=== PATIENT | female | born 1965 | race Caucasian/White ===

== ENCOUNTER 2021-01-08 22:21 | Emergency (ER) | payer MEDICAID, SELFPAY ==
--- NOTE | ~2021-01-08 | XR_ITS ---
EXAMINATION: XR CHEST CLINICAL INFORMATION: Cough. Shortness of breath. COMPARISON: None TECHNIQUE: Frontal view of the chest was obtained. FINDINGS: The lungs are well expanded. There is no focal consolidation, edema, or effusion. No pneumothorax. The cardiomediastinal silhouette is within normal limits. No acute osseous abnormality. XR/XR chest 1V IMPRESSION: Clear lungs.
--- NOTE | ~2021-01-08 | CT_ITS ---
EXAMINATION: CT HEAD WITHOUT CONTRAST CLINICAL INFORMATION: Headache. Vision changes. COMPARISON: None. TECHNIQUE: Contiguous axial imaging was performed from the skull base to vertex without intravenous contrast. This CT examination was performed using dose optimization techniques as appropriate, variously including the following: * Automated exposure control * Adjustment of mA and/or kV according to patient size (this includes techniques or standardized protocols for targeted exams where dose is matched to indication/reason for exam; i.e. extremities or head) Use of iterative reconstruction technique DLP: 602 mGy-cm. FINDINGS: There is no evidence of acute intracranial hemorrhage or territorial infarction. No abnormal mass effect or midline shift is seen. Escalante to white matter differentiation is well preserved. No extra-axial fluid collections are identified. No hydrocephalus. No significant volume loss. There is no abnormal attenuation within the brain parenchyma. The osseous structures and soft tissues are normal. Partial opacification of the mastoid air cells bilaterally. Mild mucoperiosteal thickening of the right maxillary sinus and right ethmoid air cells. CT/CT head/brain wo con IMPRESSION: No acute intracranial pathology.
[2021-01-08 22:27] VITALS: BP 200/91; PULSE 74; RESP 18; TEMP 36.9; O2SAT 100; BMI 39.0
[2021-01-09 00:30] VITALS: BP 143/70; PULSE 67; TEMP 37.2; O2SAT 95
--- NOTE | 2021-01-09 01:30 | ED_ITS ---
HPI - General Adult General Chief complaint: General Medical <DELGADO Clarke - Last Filed: 01/09/21 02:35> Stated complaint: ear infection? <DELGADO Clarke - Last Filed: 01/09/21 02:35> Time Seen by Provider: 01/09/21 00:27 <DELGADO Clarke - Last Filed: 01/09/21 02:35> Source: patient <DELGADO Clarke Last Filed: 01/09/21 02:35> Mode of arrival: ambulatory <DELGADO Clarke Last Filed: 01/09/21 02:35> Limitations: other (poor historian, changing story) <DELGADO Clarke Last Filed: 01/09/21 02:35> History of Present Illness HPI narrative: 55-year-old female past medical history significant for hypertension prese nts to the emergency department with multiple complaints including headache, dizziness, chest pain, shortness of breath, right arm numbness, productive cough X1 week progressively worsening. Patient states what prompted her to come in today is that she took her blood pressure, she noted is very high, so she took her friend's blood pressure medication, she states 1 did not work, so she decided to take a 2nd dose. She is unsure of which she took, and she is not sure about the dose. She states that she has been having a headache that is been progressively worsening. She also reports dizziness, and falling over to the side with ambulation. She reports shortness of breath and a cough product neal of white sputum. Patient states she had an upper respiratory infection about a week ago. Patient is a current daily smoker and smokes about 1-2 packs per day. <DELGADO Clarke Last Filed: 01/09/21 02:35> Onset (ago): week(s) (1) <DELGADO Clarke Last Filed: 01/09/21 02:35> Severity: severe <DELGADO Clarke Last Filed: 01/09/21 02:35> Pain Consistency: constant <DELGADO Clarke Last Filed: 01/09/21 02:35> Relieving factors: none <DELGADO Clarke - Last Filed: 01/09/21 02:35> Exacerbating factors: none <DELGADO Clarke - Last Filed: 01/09/21 02:35> Treatments prior to arrival: other (two pills for BP unsure of name or dose. ) <DELGADO Clarke - Last Filed: 01/09/21 02:35> Related Data Allergies/adverse reactions: Allergies Allergy/AdvReac Type Severity Reaction Status Date / Time Unable to Assess Allergy Unverified 01/09/21 01:31 <DELGADO Clarke - Last Filed: 01/09/21 02:35> Review of Systems Review of Systems: Constitutional : No Weight loss, No Fever, No Chills, No Fatigue, No Malaise ENT/Mouth : No sore throat, No Rhinorrhea Eyes: No Eye Pain, No Swelling, No Redness Cardiovascular : + Chest Pain, + SOB, No Dyspnea on Exertion, No Orthopnea, No Edema, No Palpitations Respiratory : + Cough, + Sputum, No Wheezing Gastrointestinal : No Nausea, No Vomiting, No Diarrhea, No Constipation, No abdominal Pain, No Hematochezia, No Melena Genitourinary : No Dysuria, No Urinary Frequency, No Hematuria, Musculoskeletal : No joint pain, No Myalgias, No Joint Swelling Skin : No Skin Lesions, No rash Neuro : No Weakness, No Numbness, No Dizziness, + Headache All other systems reviewed and are negative <DELGADO Clarke Last Filed: 01/09/21 02:35> [facility] Past Medical History Attestation statement: The following information was validated with the patient. <DELGADO Clarke - Last Filed: 01/09/21 02:35> Source: old records reviewed and nursing notes reviewed <DELGADO Clarke - Last Filed: 01/09/21 02:35> Social History Social History: Social History Advance Directives: No Advance Directives Information Provided: Yes <DELGADO Clarke Last Filed: 01/09/21 02:35> Physical Exam Vital Signs: Vital Signs: Last Vital Signs Temp 98.8 F 01/09/21 02:33 Pulse 61 11/11/21 03:53 Resp 16 01/09/21 03:53 BP 142/78 H 01/09/21 03:53 Pulse Ox 100 01/09/21 03:53 Body Mass Index 39.0 <DELGADO Clarke - Last Filed: 01/09/21 02:35> Vital Signs: Last Vital Signs Temp 98.8 F 01/09/21 02:33 Pulse 61 01/09/21 03:53 Resp 16 01/09/21 03:53 BP 142/78 H 01/09/21 03:53 Pulse Ox 100 01/09/21 03:53 Body Mass Index 39.0 <Kim Salinas MD - Last Filed: 01/09/21 04:10> Appearance: Alert.? Oriented X3.? No acute distress.? Eyes: Pupils equal, round and reactive to light.?EOMI ENT: Pharynx normal.? Neck: Normal inspection.? Neck supple.? CVS: Normal heart rate and rhythm.? Pulses normal.? Respiratory: No respiratory distress.? + bilateral crackles noted Abdomen: Soft and nontender.? Skin: Skin warm and dry.? Normal skin color.? Normal skin turgor.? Extremities: No lower extremity edema.? No calf ttp Neuro: Oriented X 3.? No motor deficit.? No sensory deficit. 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 Negative Burdinski <DELGADO Clarke - Last Filed: 01/09/21 02:35> Course Reevaluation(s) Reevaluation #1: Report will be given to Dr. Nelson. Labs are pending, CT, chest x-ray pending. Patient disposition based off of laboratory studies, and patient's symptoms. <DELGADO Clarke - Last Filed: 01/09/21 02:35> Time: 02:34 <DELGADO Clarke - Last Filed: 01/09/21 02:35> Reevaluation #2: I re-evaluated the patient at bedside and she denies any dizziness/headache/shortness of breath/chest pain/palpitations currently and st ates that she is feeling much better and will be speaking with her primary care provider in the morning regarding her blood pressure control medication. On review of all investigations there are no acute findings and she is otherwise discharged home in stable condition. <Kim Salinas MD - Last Filed: 01/09/21 04:10> Time: 04:07 <Kim Salinas MD - Last Filed: 01/09/21 04:10> Medical Decision Making MDM Narrative Medical decision making narrative: 0131 55-year-old female past medical history significant for hypertension presents to the emergency department with multiple complaints including headache, dizziness, chest pain centralized non radiating, right arm numbness, shortness of breath, productive cough of white sputum X1 week progressively worsening. Patient also mentions that she took 2 of her friends blood pressure medications does not know the name, or dose Upon physical examination patient has crackles in bilateral lung irwin, has fullness were appreciated free of murmurs, abdomen soft nontender nondistended. Pupils equal round reactive to light bilaterally. Extraocular movements intact, pain free. Head normocephalic, atraumatic no step-offs or deformities. 5/5 strength upper and lower extremities. Patient has a steady gait, no ataxia. Negative pronator drift. No focal neuro deficits. Normal [id number], [id number]-cuml and hand sulfur chloride operator. Unlikely that this is a posterior stroke. Negative Brudzinski's sign, low concern for meningitis. Plan at this time is to obtain basic labs, chest x-ray, BNP, COVID, D-dimer, magnesium, troponin, EKG she will be given Ativan, and fluids. <DELGADO Clarke - Last Filed: 01/09/21 02:35> Lab Data Result diagrams: : 01/09/21 03:02 01/09/21 03:02 <DELGADO Clarke - Last Filed: 01/09/21 02:35> Labs: Lab Results 01/09/21 01/09/21 01/09/21 Range/Units 03:02 03:02 03:02 WBC 7.2 (4.8-10.8) X10*3/uL RBC 4.12 L (4.20-5.50) X10*6/uL Hgb 12.9 (12.0-16.0) g/dl Hct 38.2 (37.0-47.0) % MCV 92.7 (80.0-98.0) fL MCH 31.3 (27.0-33.0) pg MCHC 33.8 (31.0-35.0) g/dl RDW 13.0 (11.0-16.0) % Plt Count 265 (160-400) X10*3/uL MPV 10.2 (9.4-12.3) fL Immature Gran % (Auto) 1.0 H (0.0-0.4) % Neut % (Auto) 41.5 L (45-73) % Lymph % (Auto) 47.6 H (20-40) % Foster % (Auto) 7.2 (2-11) % Eos % (Auto) 1.9 (0-4) % Baso % (Auto) 0.8 (0-2) % Lymph # (Auto) 3.4 (1.2-4.9) X10*3/uL Foster # (Auto) 0.5 (0.1-1.2) X10*3/uL Eos # (Auto) 0.1 (0.0-0.4) X10*3/uL Baso # (Auto) 0.1 (0.0-0.2) X10*3/uL Abs Immat Gran (auto) 0.07 H (0.00-0.03) X10*3/uL Absolute Neuts (auto) 3.0 (2.0-8.3) x10*3/uL Absolute Nucleated RBC 0.000 (0.0-0.012) X10*3/uL Nucleated RBC % (auto) 0.0 (0.0-0.2) /100WBC D-Dimer NG/ML Sodium 138 (135-145) mmol/L Potassium 3.3 (3.3-5.1) mmol/L Chloride 104 (96-108) mmol/L Carbon Dioxide 26 (22-29) mmol/L Anion Gap 11 L (12-20) BUN 5 L (9-16) mg/dL Creatinine 0.62 (0.5-1.4) mg/dL Estim Creat Clear Calc 101.7 Estimated GFR > 60 Random Glucose 91 (60-115) mg/dL Calcium 8.3 L (8.4-10.2) mg/dL Magnesium 1.9 (1.6-2.6) mg/dL Total Bilirubin 0.2 (0.0-1.0) mg/dL AST 15 (5-31) U/L ALT 27 (0-31) U/L Alkaline Phosphatase 141 H (39-117) U/L Troponin I High Sens < 3.5 (<3.5-17.0) ng/L B-Natriuretic Peptide 19 (<100) pg/mL Total Protein 6.8 (6.5-8.0) g/dL Albumin 3.6 (3.5-5.0) g/dL COVID-19 (RONEL) (Negative) COVID-19 Clin Com 01/09/21 01/09/21 Range/Units 03:02 03:02 WBC (4.8-10.8) X10*3/uL RBC (4.20-5.50) X10*6/uL Hgb (12.0-16.0) g/dl Hct (37.0-47.0) % MCV (80.0-98.0) fL MCH (27.0-33.0) pg MCHC (31.0-35.0) g/dl RDW (11.0-16.0) % Plt Count (160-400) X10*3/uL MPV (9.4-12.3) fL Immature Gran % (Auto) (0.0-0.4) % Neut % (Auto) (45-73) % Lymph % (Auto) (20-40) % Foster % (Auto) (2-11) % Eos % (Auto) (0-4) % Baso % (Auto) (0-2) % Lymph # (Auto) (1.2-4.9) X10*3/uL Foster # (Auto) (0.1-1.2) X10*3/uL Eos # (Auto) (0.0-0.4) X10*3/uL Baso # (Auto) (0.0-0.2) X10*3/uL Abs Immat Gran (auto) (0.00-0.03) X10*3/uL Absolute Neuts (auto) (2.0-8.3) x10*3/uL Absolute Nucleated RBC (0.0-0.012) X10*3/uL Nucleated RBC % (auto) (0.0-0.2) /100WBC D-Dimer < 200 NG/ML Sodium (135-145) mmol/L Potassium (3.3-5.1) mmol/L Chloride (96-108) mmol/L Carbon Dioxide (22-29) mmol/L Anion Gap (12-20) BUN (9-16) mg/dL Creatinine (0.5-1.4) mg/dL Estim Creat Clear Calc Estimated GFR Random Glucose (60-115) mg/dL Calcium (8.4-10.2) mg/dL Magnesium (1.6-2.6) mg/dL Total Bilirubin (0.0-1.0) mg/dL AST (5-31) U/L ALT (0-31) U/L Alkaline Phosphatase (39-117) U/L Troponin I High Sens (<3.5-17.0) ng/L B-Natriuretic Peptide (<100) pg/mL Total Protein (6.5-8.0) g/dL Albumin (3.5-5.0) g/dL COVID-19 (RONEL) Negative (Negative) COVID-19 Clin Com See Note <DELGADO Clarke - Last Filed: 01/09/21 02:35> Lab Results 01/09/21 01/09/21 01/09/21 Range/Units 03:02 03:02 03:02 WBC 7.2 (4.8-10.8) X10*3/uL RBC 4.12 L (4.20-5.50) X10*6/uL Hgb 12.9 (12.0-16.0) g/dl Hct 38.2 (37.0-47.0) % MCV 92.7 (80.0-98.0) fL MCH 31.3 (27.0-33.0) pg MCHC 33.8 (31.0-35.0) g/dl RDW 13.0 (11.0-16.0) % Plt Count 265 (160-400) X10*3/uL MPV 10.2 (9.4-12.3) fL Immature Gran % (Auto) 1.0 H (0.0-0.4) % Neut % (Auto) 41.5 L (45-73) % Lymph % (Auto) 47.6 H (20-40) % Foster % (Auto) 7.2 (2-11) % Eos % (Auto) 1.9 (0-4) % Baso % (Auto) 0.8 (0-2) % Lymph # (Auto) 3.4 (1.2-4.9) X10*3/uL Foster # (Auto) 0.5 (0.1-1.2) X10*3/uL Eos # (Auto) 0.1 (0.0-0.4) X10*3/uL Baso # (Auto) 0.1 (0.0-0.2) X10*3/uL Abs Immat Gran (auto) 0.07 H (0.00-0.03) X10*3/uL Absolute Neuts (auto) 3.0 (2.0-8.3) x10*3/uL Absolute Nucleated RBC 0.000 (0.0-0.012) X10*3/uL Nucleated RBC % (auto) 0.0 (0.0-0.2) /100WBC D-Dimer NG/ML Sodium 138 (135-145) mmol/L Potassium 3.3 (3.3-5.1) mmol/L Chloride 104 (96-108) mmol/L Carbon Dioxide 26 (22-29) mmol/L Anion Gap 11 L (12-20) BUN 5 L (9-16) mg/dL Creatinine 0.62 (0.5-1.4) mg/dL Estim Creat Clear Calc 101.7 Estimated GFR > 60 Random Glucose 91 (60-115) mg/dL Calcium 8.3 L (8.4-10.2) mg/dL Magnesium 1.9 (1.6-2.6) mg/dL Total Bilirubin 0.2 (0.0-1.0) mg/dL AST 15 (5-31) U/L ALT 27 (0-31) U/L Alkaline Phosphatase 141 H (39-117) U/L Troponin I High Sens < 3.5 (<3.5-17.0) ng/L B-Natriuretic Peptide 19 (<100) pg/mL Total Protein 6.8 (6.5-8.0) g/dL Albumin 3.6 (3.5-5.0) g/dL COVID-19 (RONEL) (Negative) COVID-19 Clin Com 01/09/21 01/09/21 Range/Units 03:02 03:02 WBC (4.8-10.8) X10*3/uL RBC (4.20-5.50) X10*6/uL Hgb (12.0-16.0) g/dl Hct (37.0-47.0) % MCV (80.0-98.0) fL MCH (27.0-33.0) pg MCHC (31.0-35.0) g/dl RDW (11.0-16.0) % Plt Count (160-400) X10*3/uL MPV (9.4-12.3) fL Immature Gran % (Auto) (0.0-0.4) % Neut % (Auto) (45-73) % Lymph % (Auto) (20-40) % Foster % (Auto) (2-11) % Eos % (Auto) (0-4) % Baso % (Auto) (0-2) % Lymph # (Auto) (1.2-4.9) X10*3/uL Foster # (Auto) (0.1-1.2) X10*3/uL Eos # (Auto) (0.0-0.4) X10*3/uL Baso # (Auto) (0.0-0.2) X10*3/uL Abs Immat Gran (auto) (0.00-0.03) X10*3/uL Absolute Neuts (auto) (2.0-8.3) x10*3/uL Absolute Nucleated RBC (0.0-0.012) X10*3/uL Nucleated RBC % (auto) (0.0-0.2) /100WBC D-Dimer < 200 NG/ML Sodium (135-145) mmol/L Potassium (3.3-5.1) mmol/L Chloride (96-108) mmol/L Carbon Dioxide (22-29) mmol/L Anion Gap (12-20) BUN (9-16) mg/dL Creatinine (0.5-1.4) mg/dL Estim Creat Clear Calc Estimated GFR Random Glucose (60-115) mg/dL Calcium (8.4-10.2) mg/dL Magnesium (1.6-2.6) mg/dL Total Bilirubin (0.0-1.0) mg/dL AST (5-31) U/L ALT (0-31) U/L Alkaline Phosphatase (39-117) U/L Troponin I High Sens (<3.5-17.0) ng/L B-Natriuretic Peptide (<100) pg/mL Total Protein (6.5-8.0) g/dL Albumin (3.5-5.0) g/dL COVID-19 (RONEL) Negative (Negative) COVID-19 Clin Com See Note <Kim Salinas MD - Last Filed: 01/09/21 04:10> ECG Data Attestation: I personally reviewed and interpreted this ECG as follows: <Kim Salinas MD - Last Filed: 01/09/21 04:10> Prior ECG tracings: not available for review <Kim Salinas MD - Last Filed: 01/09/21 04:10> Interpretation: Normal sinus rhythm, HR -63, no STEMI, NM/QRS/QTC are within normal limits. <Kim Salinas MD - Last Filed: 01/09/21 04:10> Discharge Plan Discharge Clinical Impression: Shortness of breath, Cough, Chest pain <DELGADO Clarke - Last Filed: 01/09/21 02:35> Patient Disposition: Home, Self-Care <DELGADO Clarke - Last Filed: 01/09/21 02:35> Instructions: Hypertension (ED) <DELGADO Clarke Last Filed: 01/09/21 02:35> Additional Instructions: Reanude todos los medicamentos caseros seg?n lo prescrito. Mckinley un seguimiento con holloway proveedor de atenci?n primaria a primera hora de la ma?steven. Regrese a la dillon de emergencias por un empeoramiento irma de los s?ntomas. <DELGADO Clarke Last Filed: 01/09/21 02:35> Referrals: [facility] [Primary Care Provider] - 2 days <DELGADO Clarke - Last Filed: 01/09/21 02:35> Print Language: Frisian <DELGADO Clarke - Last Filed: 01/09/21 02:35>
--- NOTE | 2021-01-09 01:31 | ECG_ITS ---
Test Reason : chest pain Blood Pressure : / mmHG Vent. Rate : 063 BPM Atrial Rate : 063 BPM P-R Int : 174 ms QRS Dur : 072 ms QT Int : 422 ms P-R-T Axes : 058 -07 028 degrees QTc Int : 431 ms Normal sinus rhythm Normal ECG No previous ECGs available Referred By: Saumya Hays Electronically Signed By:ALBARO BYRNE MD
[2021-01-09] MEDS: LORazepam 1 MG TABLET PO (01:45)
[2021-01-09 02:33] VITALS: BP 164/74; PULSE 65; RESP 16; TEMP 37.1; O2SAT 100
[2021-01-09] MEDS: 0.9 % Sodium Chloride 1,000 ML 999 ML IV (02:44)
[2021-01-09 03:09] LABS: Basophils Absolute Auto 0.1 X10*3/uL (0.0-0.2); Basophils Percent Auto 0.8 % (0-2); Eosinophils Absolute Auto 0.1 X10*3/uL (0.0-0.4); Eosinophils Percent Auto 1.9 % (0-4); Hematocrit 38.2 % (37.0-47.0); Hemoglobin 12.9 g/dl (12.0-16.0); Imm Gran Abs Auto 0.07 X10*3/uL (0.00-0.03); Lymphocytes Absolute Auto 3.4 X10*3/uL (1.2-4.9); Lymphocytes Percent Auto 47.6 % (20-40); MANUAL DIFF FLAG NO; Mean Corpuscular HGB Conc 33.8 g/dl (31.0-35.0); Mean Corpuscular Hemoglobin 31.3 pg (27.0-33.0); Mean Corpuscular Volume 92.7 fL (80.0-98.0); Mean Platelet Volume 10.2 fL (9.4-12.3); Monocytes Absolute Auto 0.5 X10*3/uL (0.1-1.2); Monocytes Percent Auto 7.2 % (2-11); Neutrophils Percent Auto 41.5 % (45-73); Platelet Count 265 X10*3/uL (160-400); Red Blood Count 4.12 X10*6/uL (4.20-5.50); White Blood Count 7.2 X10*3/uL (4.8-10.8)
[2021-01-09 03:17] LABS: D Dimer < 200 NG/ML
[2021-01-09 03:27] LABS: COVID-19 Test Negative (Negative); IDNOW Serial# 9DD0AD1C
[2021-01-09 03:32] LABS: Alanine Aminotransferase 27 U/L (0-31); Albumin Level 3.6 g/dL (3.5-5.0); Alkaline Phosphatase 141 U/L (39-117); Anion Gap 11 (12-20); Aspartate Amino Transferase 15 U/L (5-31); Bilirubin Total 0.2 mg/dL (0.0-1.0); Blood Urea Nitrogen 5 mg/dL (9-16); Calcium 8.3 mg/dL (8.4-10.2); Carbon Dioxide 26 mmol/L (22-29); Chloride 104 mmol/L (96-108); Creatinine Clr Calc Pharmacy 101.7; Estimated Glomerular Filt Rate > 60; Glucose Random 91 mg/dL (60-115); Magnesium 1.9 mg/dL (1.6-2.6); Potassium 3.3 mmol/L (3.3-5.1); Sodium 138 mmol/L (135-145); Total Protein 6.8 g/dL (6.5-8.0)
[2021-01-09 03:38] LABS: B Type Natriuretic Peptide 19 pg/mL (<100); Troponin-I High Sensitivity < 3.5 ng/L (<3.5-17.0)
[2021-01-09 03:53] VITALS: BP 142/78; PULSE 61; RESP 16; O2SAT 100
== END 2021-01-09 04:13 | disposition home or self-care (01) ==
PROVIDERS: Physician Assistant; Emergency Provider Student in an Organized Health Care Education/Training Program
DX: R07.9 Chest pain, unspecified (principal); R06.02 Shortness of breath; R05.9 Cough, unspecified; I10 Essential (primary) hypertension; Z20.822 Contact with and (suspected) exposure to COVID-19
CPT/HCPCS: 36415; 70450; 71045; 80053; 83735; 83880; 84484; 85025; 85379; 87635; 93005; 96360; 99284

== ENCOUNTER 2022-01-28 15:27 | Emergency (ER) | payer MEDICAID, SELFPAY ==
--- NOTE | ~2022-01-28 | CT_ITS ---
EXAMINATION: CT ABDOMEN AND PELVIS WITHOUT CONTRAST CLINICAL INFORMATION: Left flank pain with question of kidney stone COMPARISON: None TECHNIQUE: Multidetector volumetric imaging was performed from the superior aspect of the liver through the pubic symphysis. Sagittal and coronal reformatted images were obtained on the technologist's workstation. This CT examination was performed using dose optimization techniques as appropriate, variously including the following: *Automated exposure control *Adjustment of mA and/or kV according to patient size (this includes techniques or standardized protocols for targeted exams where dose is matched to indication/reason for exam; i.e. extremities or head) *Use of iterative reconstruction technique DLP: 701 mGy-cm FINDINGS: LUNG BASES: Some nonspecific groundglass changes are present at the lung bases. A left lower lobe calcified granuloma is seen. No pleural effusions or consolidations. LIVER, GALLBLADDER, AND BILIARY TREE: The liver is normal in size, shape, and attenuation. Multiple small hepatic benign-appearing cysts are present the largest measuring about 8 mm. No worrisome solid focal hepatic lesion or biliary ductal dilatation is present. The gallbladder is contracted but otherwise unremarkable with no evidence of radiopaque gallstones, gallbladder wall thickening, or obvious pericholecystic inflammatory changes. PANCREAS: Unremarkable. SPLEEN: Unremarkable. ADRENAL GLANDS: Unremarkable. KIDNEYS AND URETERS: Right: There is a 2 mm nonobstructing right lower pole renal calculus present. The right kidney otherwise appears normal without masses or hydronephrosis. Left: Left kidney is swollen with marked perinephric stranding and mild pelvocaliectasis, especially at the lower pole. 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 No left renal calculi are seen. No stones are seen in the ureters. It also lower pole collecting system that appears to be dilated. In the midportion of the left kidney there is a 1.7 cm water density rounded mass consistent with a Bosniak class I cyst. BLADDER: Unremarkable. GASTROINTESTINAL TRACT: The left colon is completely decompressed. The remainder of the colon is unremarkable. The small bowel appears normal. The appendix appears normal. ABDOMINAL WALL: Small left inguinal hernia containing only fat. LYMPH NODES: No retroperitoneal lymphadenopathy. VASCULAR: Calcific atherosclerotic changes are seen without aneurysm PELVIC VISCERA: Normal anteverted uterus. An abnormal adnexal mass is not seen. No free fluid. OSSEOUS STRUCTURES: Unremarkable. CT/CT abdomen pelvis wo IV con IMPRESSION: 1. Abnormal left kidney with marked perinephric stranding and mild pelvocaliectasis. 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 No obstructing stone is seen. Differential diagnosis would include a recently passed stone or possibly a stricture/mass. CT urography may be helpful for further evaluation. 2. Nonobstructing 2 mm right lower pole renal calculus. 3. Other incidental findings as described above including benign hepatic cysts, small left inguinal hernia containing only fat and calcified left lower lobe granuloma. Fleischner guidelines were followed.
[2022-01-28 15:38] VITALS: BP 160/90; PULSE 93; O2SAT 98
[2022-01-28 18:10] VITALS: BP 148/92; PULSE 74; RESP 16; TEMP 36.6; O2SAT 95; BMI 32.8
--- NOTE | 2022-01-28 18:42 | ED_ITS ---
HPI - Abdominal Pain General Chief Complaint: Abdominal Pain <Dario Nobles MD - Last Filed: 01/28/22 18:43> Stated Complaint: LT FLANK PAIN <Dario Nobles MD - Last Filed: 01/28/22 18:43> Time Seen by Provider: 01/28/22 21:41 <Dario Nobles MD - Last Filed: 01/28/22 18:43> Source: patient and family (Daughter) <Kim Salinas MD - Last Filed: 01/28/22 22:16> Mode of arrival: ambulatory <Kim Salinas MD - Last Filed: 01/28/22 22:16> History of Present Illness HPI narrative: 56-year-old female presents with left flank pain for 4 hours in combination with decreased urine output but denies any urinary pain/ burning/frequency and states that the pain was 10/10 but denies any association with nausea, vomiting, fevers, chills and denies any diarrhea. Patient states she has had some occasional discomfort in the same area over many years but ?nothing like this?. <Kim Salinas MD - Last Filed: 01/28/22 22:16> Related Data Home Medications: Previous Rx's Medication Instructions Recorded cefdinir 300 mg capsule 300 mg PO Q12H 5 days #10 caps 01/28/22 tamsulosin 0.4 mg capsule (Flomax) 0.4 mg PO BEDTIME 14 days #14 caps 01/28/22 <Dario Nobles MD - Last Filed: 01/28/22 18:43> Allergies/Adverse Reactions: Allergies Allergy/AdvReac Type Severity Reaction Status Date / Time Unable to Assess Allergy Unverified 01/09/21 01:31 <Dario Nobles MD - Last Filed: 01/28/22 18:43> Review of Systems Review of Systems Pertinent positives and negatives as stated in HPI 10 point review of systems is otherwise negative. <Kim Salinas MD - Last Filed: 01/28/22 22:16> PMFSH Past Medical History Source: nursing notes reviewed <Kim Salinas MD - Last Filed: 01/28/22 22:16> Social History Social History: Social History Advance Directives: No <Dario Nobles MD - Last Filed: 01/28/22 18:43> Physical Exam ED Vital Signs: Vital Signs - 24 hr 01/28/22 18:10 01/28/22 21:18 Temperature 97.9 F 97.2 F Pulse Rate 74 67 Respiratory Rate 16 16 Blood Pressure 148/92 H 143/72 H Pulse Oximetry 95 95 Oxygen Delivery Method Room Air Room Air BMI result Body Mass Index 32.8 <Dario Nobles MD - Last Filed: 01/28/22 18:43> Vital Signs - 24 hr 01/28/22 18:10 01/28/22 21:18 Temperature 97.9 F 97.2 F Pulse Rate 74 67 Respiratory Rate 16 16 Blood Pressure 148/92 H 143/72 H Pulse Oximetry 95 95 Oxygen Delivery Method Room Air Room Air BMI result Body Mass Index 32.8 VITAL SIGNS: Reviewed. GENERAL: Well developed, well nourished, in no acute distress. HEAD: Normocephalic/atraumatic EYES: PERRLA, EOMI EARS: Ext canals without abnormality OROPHARYNX: no oral lesions noted, posterior pharynx clear LUNGS: Normal breath sounds. No adventitious sounds or accessory muscle use. SpO2<95> CARDIOVASCULAR: Regular rate and rhythm without noted murmurs ABDOMEN: Soft, non-tender, non-distended with bowel sounds, no CVA tenderness. MUSCULOSKELETAL: No tenderness, deformities, or effusions noted on gross inspection. EXTREMITIES: No cyanosis, clubbing or edema. SKIN: Inspection of the skin reveals no rashes NEUROLOGIC: Alert and oriented x 4. Strength and sensation to light touch were grossly intact x 4. <Kim Salinas MD - Last Filed: 01/28/22 22:16> Course Course Course Narrative: RME: 56-year-old female who presents emergency department for evaluation of left flank pain that came on suddenly, she also has sensation of urinary frequency. Patient's physical examination was unremarkable. I ordered laboratory evaluation includes CBC, CMP, lipase, urinalysis, CT scan abdomen pelvis without contrast to rule out ureteral stone. <Dario Nobles MD - Last Filed: 01/28/22 18:43> RME: 56-year-old female who presents emergency department for evaluation of left flank pain that came on suddenly, she also has sensation of urinary frequency. Patient's physical examination was unremarkable. I ordered laboratory evaluation includes CBC, CMP, lipase, urinalysis, CT scan abdomen pelvis without contrast to rule out ureteral stone. Review of all investigations consistent with possible passage of renal stone and/or mild pyelonephritis. I did discuss the case with Urology and patient will be sent out on 14 days of Flomax with 5 days of antibiotics and instructed follow-up with Urology in 4-6 weeks. <Kim Salinas MD - Last Filed: 01/28/22 22:16> MDM - Abdominal Pain Lab Data Result diagrams: : 01/28/22 19:04 01/28/22 19:04 <Dario Nobles MD - Last Filed: 01/28/22 18:43> Labs: Lab Results 01/28/22 01/28/22 01/28/22 Range/Units 19:04 19:04 19:13 WBC 10.2 (4.8-10.8) X10*3/uL RBC 4.90 (4.20-5.50) X10*6/uL Hgb 14.7 (12.0-16.0) g/dl Hct 44.7 (37.0-47.0) % MCV 91.2 (80.0-98.0) fL MCH 30.0 (27.0-33.0) pg MCHC 32.9 (31.0-35.0) g/dl RDW 13.3 (11.0-16.0) % Plt Count 260 (160-400) X10*3/uL MPV 10.5 (9.4-12.3) fL Immature Gran % (Auto) 0.3 (0.0-0.4) % Neut % (Auto) 60.1 (45-73) % Lymph % (Auto) 32.1 (20-40) % [place] % (Auto) 6.3 (2-11) % Eos % (Auto) 0.5 (0-4) % Baso % (Auto) 0.7 (0-2) % Lymph # (Auto) 3.3 (1.2-4.9) X10*3/uL [place] # (Auto) 0.6 (0.1-1.2) X10*3/uL Eos # (Auto) 0.1 (0.0-0.4) X10*3/uL Baso # (Auto) 0.1 (0.0-0.2) X10*3/uL Abs Immat Gran (auto) 0.03 (0.00-0.03) X10*3/uL Absolute Neuts (auto) 6.2 (2.0-8.3) x10*3/uL Absolute Nucleated RBC 0.000 (0.0-0.012) X10*3/uL Nucleated RBC % (auto) 0.0 (0.0-0.2) /100WBC Sodium 139 (135-145) mmol/L Potassium 3.8 (3.3-5.1) mmol/L Chloride 101 (96-108) mmol/L Carbon Dioxide 29 (22-29) mmol/L Anion Gap 13 (12-20) BUN 8 L (9-16) mg/dL Creatinine 0.77 (0.5-1.4) mg/dL Estim Creat Clear Calc 73.5 Estimated GFR > 60 Random Glucose 131 H (60-115) mg/dL Calcium 9.2 D (8.4-10.2) mg/dL Total Bilirubin 0.3 (0.0-1.0) mg/dL AST 15 (5-31) U/L ALT 11 (0-31) U/L Alkaline Phosphatase 106 (39-117) U/L Total Protein 7.5 (6.5-8.0) g/dL Albumin 4.1 (3.5-5.0) g/dL Lipase 26 (8-78) U/L Urine Color Yellow Urine Appearance Clear Urine pH 7.5 (5.0-9.0) Ur Specific [place] 1.010 (1.005-1.025) Urine Protein Negative (Neg-Trace) mg/dL Urine Glucose (UA) Negative (Negative) mg/dL Urine Ketones Negative (Negative) mg/dL Urine Blood Small (1+) H (Negative) Urine Nitrite Negative (Negative) Ur Leukocyte Esterase Negative (Negative) Urine RBC 3-5 H (0-2) /HPF Urine WBC 0-5 (0-5) /HPF Ur Squamous Epith Cells 0-2 (0-2) /HPF Urine Bacteria Trace (None Seen) Hyaline Casts 0-2 (0-2) /LPF <Dario Nobles MD - Last Filed: 01/28/22 18:43> Lab Results 01/28/22 01/28/22 01/28/22 Range/Units 19:04 19:04 19:13 WBC 10.2 (4.8-10.8) X10*3/uL RBC 4.90 (4.20-5.50) X10*6/uL Hgb 14.7 (12.0-16.0) g/dl Hct 44.7 (37.0-47.0) % MCV 91.2 (80.0-98.0) fL MCH 30.0 (27.0-33.0) pg MCHC 32.9 (31.0-35.0) g/dl RDW 13.3 (11.0-16.0) % Plt Count 260 (160-400) X10*3/uL MPV 10.5 (9.4-12.3) fL Immature Gran % (Auto) 0.3 (0.0-0.4) % Neut % (Auto) 60.1 (45-73) % Lymph % (Auto) 32.1 (20-40) % [place] % (Auto) 6.3 (2-11) % Eos % (Auto) 0.5 (0-4) % Baso % (Auto) 0.7 (0-2) % Lymph # (Auto) 3.3 (1.2-4.9) X10*3/uL [place] # (Auto) 0.6 (0.1-1.2) X10*3/uL Eos # (Auto) 0.1 (0.0-0.4) X10*3/uL Baso # (Auto) 0.1 (0.0-0.2) X10*3/uL Abs Immat Gran (auto) 0.03 (0.00-0.03) X10*3/uL Absolute Neuts (auto) 6.2 (2.0-8.3) x10*3/uL Absolute Nucleated RBC 0.000 (0.0-0.012) X10*3/uL Nucleated RBC % (auto) 0.0 (0.0-0.2) /100WBC Sodium 139 (135-145) mmol/L Potassium 3.8 (3.3-5.1) mmol/L Chloride 101 (96-108) mmol/L Carbon Dioxide 29 (22-29) mmol/L Anion Gap 13 (12-20) BUN 8 L (9-16) mg/dL Creatinine 0.77 (0.5-1.4) mg/dL Estim Creat Clear Calc 73.5 Estimated GFR > 60 Random Glucose 131 H (60-115) mg/dL Calcium 9.2 D (8.4-10.2) mg/dL Total Bilirubin 0.3 (0.0-1.0) mg/dL AST 15 (5-31) U/L ALT 11 (0-31) U/L Alkaline Phosphatase 106 (39-117) U/L Total Protein 7.5 (6.5-8.0) g/dL Albumin 4.1 (3.5-5.0) g/dL Lipase 26 (8-78) U/L Urine Color Yellow Urine Appearance Clear Urine pH 7.5 (5.0-9.0) Ur Specific [place] 1.010 (1.005-1.025) Urine Protein Negative (Neg-Trace) mg/dL Urine Glucose (UA) Negative (Negative) mg/dL Urine Ketones Negative (Negative) mg/dL Urine Blood Small (1+) H (Negative) Urine Nitrite Negative (Negative) Ur Leukocyte Esterase Negative (Negative) Urine RBC 3-5 H (0-2) /HPF Urine WBC 0-5 (0-5) /HPF Ur Squamous Epith Cells 0-2 (0-2) /HPF Urine Bacteria Trace (None Seen) Hyaline Casts 0-2 (0-2) /LPF <Kim Salinas MD - Last Filed: 01/28/22 22:16> Discharge Plan Discharge Clinical Impression: Pyelonephritis, Renal colic <Dario Nobles MD - Last Filed: 01/28/22 18:43> Patient Disposition: Home, Self-Care <Dario Nobles MD - Last Filed: 01/28/22 18:43> Instructions: Renal Colic (ED), Kidney Infection (ED) <Dario Nobles MD - Last Filed: 01/28/22 18:43> Additional Instructions: 1. Reanudar todos los medicamentos caseros seg?n lo prescrito. 2. Complete todo el curso de antibi?ticos, as? tere la medicaci?n para el tratamiento de c?lculos renales. 3. Realice un seguimiento con holloway proveedor de atenci?n primaria en los pr?ximos 1 o 2 d?as para programar odilia cash para odilia reevaluaci?n y un manejo ambulatorio adicional. 4. Se le melgar proporcionado odilia derivaci?n para el seguimiento con urolog?a y debe llamarlos para programar odilia cash en 4 a 6 semanas. Regrese a la dillon de emergencias si los s?ntomas empeoran. <Dario Nobles MD - Last Filed: 01/28/22 18:43> Prescriptions: New cefdinir 300 mg capsule 300 mg PO Q12H 5 Days Qty: 10 0RF tamsulosin [Flomax] 0.4 mg capsule 0.4 mg PO BEDTIME 14 Days Qty: 14 0RF <Dario Nobles MD - Last Filed: 01/28/22 18:43> Referrals: Osiel Hi MD [Primary Care Provider] - Joss Saenz MD [Physician] - 02/25/22 <Dario Nobles MD - Last Filed: 01/28/22 18:43> Print Language: Macedonian <Dario Nobles MD - Last Filed: 01/28/22 18:43>
[2022-01-28 19:18] LABS: MANUAL DIFF FLAG NO
[2022-01-28 19:20] LABS: Basophils Absolute Auto 0.1 X10*3/uL (0.0-0.2); Basophils Percent Auto 0.7 % (0-2); Eosinophils Absolute Auto 0.1 X10*3/uL (0.0-0.4); Eosinophils Percent Auto 0.5 % (0-4); Hematocrit 44.7 % (37.0-47.0); Hemoglobin 14.7 g/dl (12.0-16.0); Imm Gran Abs Auto 0.03 X10*3/uL (0.00-0.03); Imm Gran Pct Auto 0.3 % (0.0-0.4); Lymphocytes Absolute Auto 3.3 X10*3/uL (1.2-4.9); Lymphocytes Percent Auto 32.1 % (20-40); Mean Corpuscular HGB Conc 32.9 g/dl (31.0-35.0); Mean Corpuscular Volume 91.2 fL (80.0-98.0); Mean Platelet Volume 10.5 fL (9.4-12.3); Monocytes Absolute Auto 0.6 X10*3/uL (0.1-1.2); Monocytes Percent Auto 6.3 % (2-11); Neutrophils Absolute Auto 6.2 x10*3/uL (2.0-8.3); Neutrophils Percent Auto 60.1 % (45-73); Platelet Count 260 X10*3/uL (160-400); Red Cell Distribution Width 13.3 % (11.0-16.0); White Blood Count 10.2 X10*3/uL (4.8-10.8)
[2022-01-28 19:21] LABS: Appearance Urine Clear; Color Urine Yellow; Glucose Urine UA Negative (Negative); Leukocyte Esterase Urine Negative (Negative); Nitrite Urine Negative (Negative); PH 7.5 (5.0-9.0); UMIC TRIGGER UACC YES; Urine Blood Small (1+) (Negative); Urine Ketones Negative (Negative); Urine Protein Negative (Neg-Trace)
[2022-01-28 19:37] LABS: Alanine Aminotransferase 11 U/L (0-31); Albumin Level 4.1 g/dL (3.5-5.0); Alkaline Phosphatase 106 U/L (39-117); Anion Gap 13 (12-20); Aspartate Amino Transferase 15 U/L (5-31); Bilirubin Total 0.3 mg/dL (0.0-1.0); Blood Urea Nitrogen 8 mg/dL (9-16); Calcium 9.2 mg/dL (8.4-10.2); Carbon Dioxide 29 mmol/L (22-29); Chloride 101 mmol/L (96-108); Creatinine Clr Calc Pharmacy 73.5; Estimated Glomerular Filt Rate > 60; Glucose Random 131 mg/dL (60-115); Lipase 26 U/L (8-78); Potassium 3.8 mmol/L (3.3-5.1); Sodium 139 mmol/L (135-145); Total Protein 7.5 g/dL (6.5-8.0)
[2022-01-28 19:41] LABS: Bacteria Urine Trace (None Seen); Hyaline Casts Urine 0-2 /LPF (0-2); Squamous Epithelial Cell Urine 0-2 /HPF (0-2); WBC Urine 0-5 /HPF (0-5)
[2022-01-28 21:18] VITALS: BP 143/72; PULSE 67; RESP 16; TEMP 36.2; O2SAT 95
== END 2022-01-28 22:34 | disposition home or self-care (01) ==
PROVIDERS: Emergency Medicine Emergency Medical Services; Emergency Provider Student in an Organized Health Care Education/Training Program; PCP Internal Medicine
DX: N23 Unspecified renal colic (principal); N12 Tubulo-interstitial nephritis, not specified as acute or chronic
CPT/HCPCS: 36415; 74176; 80053; 81001; 83690; 85025; 99282; 99284

== ENCOUNTER 2022-10-07 15:32 | Outpatient (REF) | payer MEDICAID, SELFPAY ==
[2022-10-07 18:07] LABS: MANUAL DIFF FLAG NO
[2022-10-07 18:12] LABS: Basophils Absolute Auto 0.1 X10*3/uL (0.0-0.2); Basophils Percent Auto 1.1 % (0-2); Eosinophils Absolute Auto 0.1 X10*3/uL (0.0-0.4); Eosinophils Percent Auto 1.3 % (0-4); Hematocrit 42.3 % (37.0-47.0); Hemoglobin 13.9 g/dl (12.0-16.0); Imm Gran Abs Auto 0.01 X10*3/uL (0.00-0.03); Imm Gran Pct Auto 0.2 % (0.0-0.4); Lymphocytes Absolute Auto 2.6 X10*3/uL (1.2-4.9); Mean Corpuscular HGB Conc 32.9 g/dl (31.0-35.0); Mean Corpuscular Hemoglobin 30.5 pg (27.0-33.0); Mean Platelet Volume 11.5 fL (9.4-12.3); Monocytes Absolute Auto 0.3 X10*3/uL (0.1-1.2); Monocytes Percent Auto 6.7 % (2-11); Neutrophils Absolute Auto 1.6 x10*3/uL (2.0-8.3); Neutrophils Percent Auto 34.7 % (45-73); Platelet Count 254 X10*3/uL (160-400); Red Blood Count 4.55 X10*6/uL (4.20-5.50); Red Cell Distribution Width 13.5 % (11.0-16.0); White Blood Count 4.6 X10*3/uL (4.8-10.8)
[2022-10-07 18:17] LABS: Estimated Average Glucose 111 mg/dL; Hemoglobin A1c % 5.5 %
[2022-10-07 18:58] LABS: Alanine Aminotransferase 11 U/L (0-31); Alkaline Phosphatase 92 U/L (39-117); Anion Gap 13 (12-20); Aspartate Amino Transferase 14 U/L (5-31); Bilirubin Total 0.3 mg/dL (0.0-1.0); Blood Urea Nitrogen 6 mg/dL (9-16); Calcium 9.1 mg/dL (8.4-10.2); Carbon Dioxide 28 mmol/L (22-29); Chloride 105 mmol/L (96-108); Cholesterol 322 mg/dL; Estimated Glomerular Filt Rate > 60; Glucose Fasting 83 mg/dL (60-99); HDL Cholesterol 54 mg/dL; LDL Cholesterol Calculated 240 mg/dl; Potassium 3.3 mmol/L (3.3-5.1); Sodium 143 mmol/L (135-145); Total Protein 7.7 g/dL (6.5-8.0); Triglycerides 144 mg/dL
[2022-10-07 19:12] LABS: TSH reflex Free T4 12.93 uIU/mL (0.32-4.0)
[2022-10-07 20:52] LABS: Free T4 (Free Thyroxine) < 0.42 ng/dL (0.71-1.85)
[2022-10-08 04:14] LABS: ~HepC Num1 0.08 S/CO (0.00-0.79); ~Hepatitis C Antibody Nonreactive (Nonreactive)
[2022-10-11 18:14] LABS: HIV RNA PCR Qn Copies Not Detected Copies/mL; HIV RNA PCR Qn Log Copies Not Detected Log cps/mL
== END 2022-10-07 15:33 | disposition home or self-care (01) ==
LOC: HO.CHCLDS 15:32
PROVIDERS: Visit Provider Internal Medicine
DX: Z11.4 Encounter for screening for human immunodeficiency virus [HIV] (principal); I10 Essential (primary) hypertension; E03.9 Hypothyroidism, unspecified
CPT/HCPCS: 36415; 80053; 80061; 83036; 84439; 84443; 85025; 86803; 87536; 87900

== ENCOUNTER 2022-12-25 12:30 | Outpatient (REF) | payer MEDICAID, SELFPAY | END 2022-12-25 12:31 | disposition home or self-care (01) | LOC: HO.MAMMO 12:30 | PROVIDERS: PCP Internal Medicine; Visit Provider Internal Medicine | DX: Z12.31 Encounter for screening mammogram for malignant neoplasm of breast (principal) | CPT/HCPCS: 77063; 77067 ==

== ENCOUNTER → 2022-12-25 13:00 | Outpatient (BNV) | payer MEDICAID, SELFPAY | PROVIDERS: PCP Internal Medicine; Visit Provider Radiology Diagnostic Radiology | DX: Z12.31 Encounter for screening mammogram for malignant neoplasm of breast (principal) | CPT/HCPCS: 77063; 77067 ==

== ENCOUNTER 2023-03-12 10:42 | Outpatient (REF) | payer MEDICAID, SELFPAY ==
--- NOTE | ~2023-03-12 | CT_ITS ---
EXAMINATION: CT CHEST LOW-DOSE SCREENING WITHOUT CONTRAST HISTORY: Asymptomatic patient meeting criteria for lung screening. Nicotine dependence. PATIENT PACK-YEAR HISTORY: 44 COMPARISON: None available. TECHNIQUE: Multidetector volumetric noncontrast CT imaging of the chest was obtained using low-dose screening CT technique. Axial thin section 0.6 mm reformations in soft tissue and lung windows were obtained. Sagittal and coronal reformations were obtained. Axial MIP images were also created and reviewed. RECONSTRUCTED WIDTH: 1.25 mm x 1.[address] examination was performed using dose optimization techniques as appropriate, variously including the following: *Automated exposure control *Adjustment of mA and/or kV according to patient size (this includes techniques or standardized protocols for targeted exams where dose is matched to indication/reason for exam; i.e. extremities or head) *Use of iterative reconstruction technique TOTAL EXAM DLP: 56 mGy-cm CTDIvol: 1.55 mGy FINDINGS: LUNGS: Lungs bilaterally symmetrically expanded. Calcified granuloma left lower lobe. No suspicious or concerning focal lung nodule or mass. Some left basilar scarring is present. No effusion or pneumothorax. Central airways patent. LYMPHATIC STRUCTURES: No mediastinal, hilar or axillary adenopathy or free fluid collection. THYROID GLAND: Unremarkable to the extent seen. CARDIOVASCULAR STRUCTURES: Aortic and heart size normal. No significant coronary artery calcifications. No pericardial effusion. UPPER ABDOMEN: Included portions of the solid organs in the upper abdomen unremarkable on noncontrast imaging. OSSEOUS STRUCTURES: No suspicious focal findings. SPINAL COMPRESSION: Absent. CT/CT lung screening IMPRESSION: No findings suspicious for malignancy. LUNG-RADS CATEGORY ASSESSMENT: Negative. INCIDENTAL FINDINGS (S CATEGORY): Finding: No incidental findings. Significance category: Normal or normal variant. RECOMMENDATION: Low-dose lung CT overall in 1 year. Visual estimate of coronary calcified plaque burden: None. However, this exam cannot replace a dedicated cardiac CT calcium score for accurate assessment.
== END 2023-03-12 10:43 | disposition home or self-care (01) ==
LOC: HO.CT 10:42
PROVIDERS: PCP Internal Medicine; Visit Provider Nurse Practitioner Family
DX: Z12.2 Encounter for screening for malignant neoplasm of respiratory organs (principal); F17.210 Nicotine dependence, cigarettes, uncomplicated
CPT/HCPCS: 71271; G0296

== ENCOUNTER 2023-03-12 10:50 | Outpatient (AMB) | payer MEDICAID, SELFPAY ==
--- NOTE | 2023-03-12 11:10 | MHC.OFFVIS ---
Intake Intake Visit Reasons: LDCT SD Allergies Unable to Assess Allergy (Unverified 01/09/21 01:31) HPI HPI Comments History of Present Illness Details Zaina is a pleasant 57 year old female, current 1/4 ppd smoker with a 22 PYH. Patient has been smoking since age 13 for 44 years at 1/2 ppd. Denies marijuana use. Denies exposure to chemicals or substances like asbestos. Denies second hand smoke exposure. Denies known family history of lung cancer. Denies personal history of cancers. Denies chest CT in last year. Denies recent travel outside the [place]. Denies testing positive for COVID. Admits receiving COVID Vaccine. Denies fever, chills, chest pain, new cough, hemoptysis or unintentional weight loss. Lung Cancer Screening Questionnaire reviewed with patient by provider. Shared Decision Making Completed. Discussed in detail with patient, the risk versus benefit of LDCT screening. Patient in agreement of proceeding with scan. Assessment & Plan Assessment & Plan (1) Nicotine dependence: Code(s): F17.200 - Nicotine dependence, unspecified, uncomplicated Plan Shared decision-making visit completed today in office. This patient meets criteria for LDCT for lung cancer screening purposes and is asymptomatic. Offered smoking cessation. Patient has been scheduled for a low dose chest CT for screening purposes at [facility]. We discussed how the results will be obtained depending on CT findings. RADS 1 and RADS 2 will receive a letter with results and will follow up for annual LDCT. Patient informed they will be contacted at later date to schedule upcoming LDCT scan. RADS 3 and RADS 4 will receive a telephone call, or an office visit after reviewing case at our Lung Cancer Conference to determine when the next LDCT will be scheduled or further interventions that may be needed. Discussed importance of screening program and compliance with yearly LDCT scan as scheduled. Risks, benefits, and alternatives were discussed in detail and patient agrees to proceed. Risks discussed include but are not limited to: radiation exposure and possibility of additional intervention for benign disease. Benefits include detection of lung cancer at an early stage. A copy of today's visit and LDCT results will be sent to patient's PCP. Incidental findings on LDCT are PCP's responsibility. If there are incidental findings, our office will ensure that PCP office is aware of these findings. All questions were answered and patient is in agreement of plan. Coding Level of Care Code Lung Cancer Screening G0296 Diagnoses Nicotine dependence F17.200
== END 2023-03-12 11:46 | disposition home or self-care (01) ==
PROVIDERS: PCP Internal Medicine; Visit Provider Nurse Practitioner Family
DX: F17.210 Nicotine dependence, cigarettes, uncomplicated (principal)
CPT/HCPCS: G0296

== ENCOUNTER 2024-05-11 20:33 | Emergency (ER) | payer MEDICAID, SELFPAY ==
--- NOTE | ~2024-05-11 | XR_ITS ---
CLINICAL HISTORY: CP 2 view chest x-ray Comparison: Chest x-ray from 01/09/2021 Findings: No consolidation or effusion. Mild emphysematous changes and scarring. Cardiac silhouette and mediastinal contours are at the upper limits of normal. Mild osteoarthritis of the left AC joint. Majority of the spine is obscured. IMPRESSION: No consolidation. This document has been electronically signed by: Bobby Bernstein MD on 05/11/2024 22:04:12
--- NOTE | 2024-05-11 20:37 | ECG_ITS ---
Test Reason : CP Blood Pressure : */* mmHG Vent. Rate : 64 BPM Atrial Rate : 64 BPM P-R Int : 166 ms QRS Dur : 86 ms QT Int : 400 ms P-R-T Axes : 55 -26 129 degrees QTcB Int : 412 ms Sinus rhythm with occasional Premature ventricular complexes T wave abnormality, consider lateral ischemia Abnormal ECG When compared with ECG of 09-Jan-2021 01:56, Premature ventricular complexes are now Present T wave inversion now evident in Lateral leads Referred By: Kena Evans Electronically Signed By: ANNE PAREDES
[2024-05-11 20:50] VITALS: BP 174/87; PULSE 67; RESP 18; TEMP 36.3; O2SAT 96; BMI 32.7
--- NOTE | 2024-05-11 20:52 | ED_ITS ---
HPI - Chest Pain General Chief Complaint: Chest Pain Stated Complaint: CP, SOB, low blood pressure; low heart rate Time Seen by Provider: 05/11/24 22:00 Source: patient and family Mode of arrival: ambulatory Limitations: no limitations History of Present Illness ED Provider: HPI narrative: Patient has been feeling bloated feel tired and weak patient is noncompliant to her medication for thyroid has not taken the medication for last 2 months, Sometime patient feel sharp midsternal pain feels lousy and sleepy Related Data Previous Rx's ?Medication ?Instructions ?Recorded cefdinir 300 mg capsule 300 mg PO Q12H 5 days #10 caps 01/28/22 tamsulosin 0.4 mg capsule (Flomax) 0.4 mg PO BEDTIME 14 days #14 caps 01/28/22 amlodipine 10 mg tablet 10 mg PO DAILY #90 tabs 05/11/24 levothyroxine 150 mcg capsule 150 mcg PO DAILY #90 caps 05/11/24 Allergies Allergy/AdvReac Type Severity Reaction Status Date / Time No Known Allergies Allergy Verified 05/11/24 20:53 Review of Systems 2 Review of Systems: Yes all other systems are reviewed and are negative [facility] Past Medical History Medical History Tubular adenoma Hypertension Hyperlipidemia Acquired hypothyroidism Nicotine dependence, cigarettes, uncomplicated Surgical History History of colonoscopy History of tubal ligation Social History Social History Alcohol intake: never Smoked in Last 30 Days: Yes Use of substances other than those prescribed or required for medical reasons: No Advance Directives: No Advance Directives Information Provided: Yes Do you have a plan to hurt others: No Plan Physical Exam 2 Vital Signs: Vital Signs: Last Vital Signs Temp 98.3 F 05/12/24 00:03 Pulse 65 05/12/24 00:03 Resp 15 05/12/24 00:03 BP 161/72 H 05/12/24 00:03 Pulse Ox 97 05/12/24 00:03 O2 Del Method Room Air 05/12/24 00:03 BMI result Body Mass Index 32.7 Appearance: Alert. Oriented X3. No acute distress. looks bloated with facial and extremities swelling Eyes: no pallor or icterus ENT: Pharynx normal. Oral Mucosa moist Neck: Normal inspection. Neck supple. CVS: Normal heart rate and rhythm. Pulses normal. Respiratory: No respiratory distress. Equal air entry bilateral, no wheezing/rales/rhonchi Abdomen: Soft and nontender. Bowel sounds are present, no mass palpable, no CVA tenderness Skin: Skin warm and dry. Normal skin color. Normal skin turgor. Extremities: No lower extremity edema. No calf tenderness Neuro: Oriented X 3. No motor deficit. Course Course Course Narrative: This is an RME: Additional HPI, ROS, PE not included below will be deferred to primary provider. RME assessment and note performed by: Kena Evans PA-C This is a [id number]-female, with a hx of HTN, thyroid disease and HLD, who presents to the ER with a complaint of chest pain, SOB on exertion, and concerns for elevated BP x 1 week. Blood pressure elevated at 174/87. Plan: Labs, EKG, chest x-ray, further ER evaluation Medications Administered Discontinued Medications Generic Name Dose Route Start Last Admin Trade Name Freq PRN Reason Stop Dose Admin Levothyroxine Sodium 150 mcg 05/11/24 22:23 05/11/24 22:48 Levothyroxine Sodium 150 Mcg Tablet PO 05/11/24 22:24 150 mcg ONCE ONE Administration Medical Decision Making Medical Decision Making [facility] Narrative: patient with hypothyroidism noncompliant to medication comes here with look in his lab workup showed had significant TSH will start patient again levothyroxine advised to follow up as outpatient Differential Diagnosis Differential Diagnoses: The differential diagnosis associated with the presentation includes hypothyroidism/ myxedema/ metabolic abnormality Lab Data [facility] Lab Attestation statement: I reviewed the patient's lab results. 05/11/24 21:09 05/11/24 21:09 Labs: Lab Results 05/11/24 Range/Units 21:09 WBC 6.0 (4.8-10.8) X10*3/uL RBC 4.19 L (4.20-5.50) X10*6/uL Hgb 12.9 (12.0-16.0) g/dl Hct 37.9 (37.0-47.0) % MCV 90.5 (80.0-98.0) fL MCH 30.8 (27.0-33.0) pg MCHC 34.0 (31.0-35.0) g/dl RDW 13.7 (11.0-16.0) % Plt Count 230 (160-400) X10*3/uL MPV 10.5 (9.4-12.3) fL Immature Gran % (Auto) 0.2 (0.0-0.4) % Neut % (Auto) 43.8 L (45-73) % Lymph % (Auto) 46.1 H (20-40) % [place] % (Auto) 7.4 (2-11) % Eos % (Auto) 1.7 (0-4) % Baso % (Auto) 0.8 (0-2) % Lymph # (Auto) 2.8 (1.2-4.9) X10*3/uL [place] # (Auto) 0.4 (0.1-1.2) X10*3/uL Eos # (Auto) 0.1 (0.0-0.4) X10*3/uL Baso # (Auto) 0.1 (0.0-0.2) X10*3/uL Abs Immat Gran (auto) 0.01 (0.00-0.03) X10*3/uL Absolute Neuts (auto) 2.6 (2.0-8.3) x10*3/uL Absolute Nucleated RBC 0.000 (0.0-0.012) X10*3/uL Nucleated RBC % (auto) 0.0 (0.0-0.2) /100WBC Sodium 143 (135-145) mmol/L Potassium 3.6 (3.3-5.1) mmol/L Chloride 109 H (96-108) mmol/L Carbon Dioxide 27 (22-29) mmol/L Anion Gap 11 L (12-20) BUN 9 (9-16) mg/dL Creatinine 0.89 (0.5-1.4) mg/dL Estim Creat Clear Calc 67.2 Estimated GFR > 60 Random Glucose 88 (60-115) mg/dL Calcium 8.9 (8.4-10.2) mg/dL Magnesium 1.9 (1.6-2.6) mg/dL Total Bilirubin 0.2 (0.0-1.0) mg/dL Direct Bilirubin < 0.2 (0.0-0.5) mg/dL AST 18 (5-31) U/L ALT 17 (0-31) U/L Alkaline Phosphatase 102 (39-117) U/L Troponin I High Sens < 2.7 (<3.5-17.0) ng/L B-Natriuretic Peptide 15 (<100) pg/mL Total Protein 7.7 (6.5-8.0) g/dL Albumin 3.9 (3.5-5.0) g/dL TSH 13.75 H (0.32-4.0) uIU/mL Influenza Type A (PCR) NEGATIVE (Negative) Influenza Type B (PCR) NEGATIVE (Negative) RSV RNA Qual (PCR) NEGATIVE (Negative) SARS-CoV-2 RNA (RT-PCR) NEGATIVE (Negative) Independent Interpretation I performed an independent interpretation of an: EKG Interpretation: normal sinus rhythm with ventricular rate of 64 beats per minute nonspecific T wave changes in lateral leads occasional PVCs no acute STT wave changes no acute ischemia Discharge Plan Discharge Clinical Impression: Hypothyroidism Patient Disposition: Home, Self-Care Instructions: Hypothyroidism (ED) Additional Instructions: take your thyroid and blood pressure medications daily follow up with your PCP Prescriptions: New levothyroxine 150 mcg capsule 150 mcg PO DAILY Qty: 90 1RF amlodipine 10 mg tablet 10 mg PO DAILY Qty: 90 1RF No Action cefdinir 300 mg capsule 300 mg PO Q12H 5 Days Qty: 10 0RF tamsulosin [Flomax] 0.4 mg capsule 0.4 mg PO BEDTIME 14 Days Qty: 14 0RF Interventions: ED Discharge Assessment Last Done: 05/12/24 00:03 Discharge Date/Time: 05/12/24 00:04 Print Language: Lebanese
[2024-05-11 21:14] LABS: Basophils Absolute Auto 0.1 X10*3/uL (0.0-0.2); Basophils Percent Auto 0.8 % (0-2); Eosinophils Absolute Auto 0.1 X10*3/uL (0.0-0.4); Eosinophils Percent Auto 1.7 % (0-4); Hematocrit 37.9 % (37.0-47.0); Hemoglobin 12.9 g/dl (12.0-16.0); Imm Gran Abs Auto 0.01 X10*3/uL (0.00-0.03); Imm Gran Pct Auto 0.2 % (0.0-0.4); Lymphocytes Absolute Auto 2.8 X10*3/uL (1.2-4.9); Lymphocytes Percent Auto 46.1 % (20-40); MANUAL DIFF FLAG NO; Mean Corpuscular Hemoglobin 30.8 pg (27.0-33.0); Mean Corpuscular Volume 90.5 fL (80.0-98.0); Mean Platelet Volume 10.5 fL (9.4-12.3); Monocytes Absolute Auto 0.4 X10*3/uL (0.1-1.2); Monocytes Percent Auto 7.4 % (2-11); Neutrophils Absolute Auto 2.6 x10*3/uL (2.0-8.3); Neutrophils Percent Auto 43.8 % (45-73); Platelet Count 230 X10*3/uL (160-400); Red Blood Count 4.19 X10*6/uL (4.20-5.50); Red Cell Distribution Width 13.7 % (11.0-16.0)
[2024-05-11 21:29] LABS: Alanine Aminotransferase 17 U/L (0-31); Albumin Level 3.9 g/dL (3.5-5.0); Alkaline Phosphatase 102 U/L (39-117); Anion Gap 11 (12-20); Aspartate Amino Transferase 18 U/L (5-31); Bilirubin Direct < 0.2 mg/dL (0.0-0.5); Bilirubin Total 0.2 mg/dL (0.0-1.0); Blood Urea Nitrogen 9 mg/dL (9-16); Calcium 8.9 mg/dL (8.4-10.2); Carbon Dioxide 27 mmol/L (22-29); Chloride 109 mmol/L (96-108); Creatinine Clr Calc Pharmacy 67.2; Estimated Glomerular Filt Rate > 60; Glucose Random 88 mg/dL (60-115); Magnesium 1.9 mg/dL (1.6-2.6); Potassium 3.6 mmol/L (3.3-5.1); Sodium 143 mmol/L (135-145); Total Protein 7.7 g/dL (6.5-8.0)
[2024-05-11 21:34] LABS: B Type Natriuretic Peptide 15 pg/mL (<100)
[2024-05-11 21:37] LABS: Troponin-I High Sensitivity < 2.7 ng/L (<3.5-17.0)
[2024-05-11 21:51] LABS: Influenza A PCR NEGATIVE (Negative); Influenza B PCR NEGATIVE (Negative); Resp Syncy Virus RNA Qual PCR NEGATIVE (Negative); SARS COV2 PCR INHOUSE NEGATIVE (Negative)
[2024-05-11 22:41] VITALS: BP 159/81; PULSE 62; RESP 18; TEMP 36.6; O2SAT 96
[2024-05-11] MEDS: Levothyroxine Sodium 150 MCG TABLET PO (22:48)
[2024-05-11 23:01] LABS: Thyroid Stimulating Hormone 13.75 uIU/mL (0.32-4.0)
[2024-05-12 00:03] VITALS: BP 161/72; PULSE 65; RESP 15; TEMP 36.8; O2SAT 97
== END 2024-05-12 00:04 | disposition home or self-care (01) ==
PROVIDERS: Physician Assistant Medical; Emergency Provider Internal Medicine
DX: E03.9 Hypothyroidism, unspecified (principal); R07.89 Other chest pain; R06.02 Shortness of breath; Z03.818 Encounter for observation for suspected exposure to other biological agents ruled out; Z79.899 Other long term (current) drug therapy; Z91.148 Patient's other noncompliance with medication regimen for other reason
CPT/HCPCS: 0241U; 36415; 71046; 80048; 80076; 83735; 83880; 84443; 84484; 85025; 93005; 99283; 99285

== ENCOUNTER → 2024-05-11 20:37 | Outpatient (BNV) | payer MEDICAID, SELFPAY | PROVIDERS: Emergency Provider Internal Medicine; Visit Provider Internal Medicine | DX: I49.3 Ventricular premature depolarization (principal) | CPT/HCPCS: 93010 ==

== ENCOUNTER → 2024-05-11 20:53 | Outpatient (BNV) | payer MEDICAID, SELFPAY | PROVIDERS: Emergency Provider Internal Medicine; Visit Provider Radiology Neuroradiology | DX: R07.9 Chest pain, unspecified (principal) | CPT/HCPCS: 71046 ==

== ENCOUNTER 2024-10-20 15:07 | Outpatient (REF) | payer MEDICAID, SELFPAY ==
--- OUTSIDE RECORDS SUMMARY | 2024-10-17 13:15 | XMS_ITS | Encounter Summary ---
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 Name Role Phone Osiel Hi MD Primary Care Prov ider Reason for Referral * Imaging (Routine) - Closed Specialty Diagnoses / Procedures Referred By Contac t Referred To Contact Radiology Diagnoses Encounter for screening mammogram for malignant neoplasm of breast Procedures BI Mammogram Screening Tomosynthesis Bilateral Osiel Hi MD [address] [place] [address] Phone: tel: fax: [address] Phone: tel: fax: Referral ID Status Reason Start Date Expiration Date Visits Re quested Visits Authorized [id number] Closed 10/17/2024 10/17/2025 1 1 Encounter Details Date Type Department Care Team (Latest Contact Info) Description 10/17/2024 1:15 PM EDT Telemedicine [facility] [address] [place], [place] [id number] Osile Hi MD [address] [place] [address] Encounter for screening mammogram for malignant neoplasm of breast (Primary Dx); Primary hypertension; Acquired hypothyroidism Social History Tobacco Use Types Packs/Day Years Used Date Smoking Tobacco: Former Cigarettes 1 20 Smokeless Tobacco: Never Depression Answer Date Recorded Patient Health Questionnaire-9 Score 2 10/17/2024 Patient Health Questionnaire-9 Score 2 10/17/2024 Last PHQ-9: Questionnaire Data Not on file 0 10/17/2024 Housing Stability Answer Date Recorded What is your housing situation today? I have clarisse reddy 12/17/[address] you li ve. Do you have problems with any of the following? None of the above 12/17/2022 Food Insecurity Answer Date Recorded Within the past 12 months, y ou worried that your food would run out before you got money to buy more: Never True 12/17/2022 Within the past 12 months,th e food you bought just didn't last and you didn't have enough money to get more: Never True Transportation Answer Date Recorded In the past 12 months, has l ack of transportation kept you from medical appts, meetings, work or from getting things needed for daily living? No 12/17/2022 Utilities Answer Date Recorded In the past 12 months, has t he electric, gas, oil or water company threatened to shut off services in your home? No 12/17/2022 Depression Answer Date Recorded Patient Health Questionnaire-2 Score 2 10/17/2024 Comments Unknown Sex and Gender Information Value Date Recorded Sex Assigned at Female 12/29/2021 10:15 AM EDT Legal Sex Female 10:15 AM EDT Gender Identity Female 12/29/2021 10:15 AM EDT Sexual Orientation Straight 12/29/2021 10 :15 AM EDT documented as of this encounter Last Filed Vital Signs Vital Sign Reading Time Taken Comments Blood Pressure 134/79 10/17/2024 1:38 PM EDT Pulse - - Temperature - - Respiratory Rate - - Oxygen Saturation - - Inhaled Oxygen Concentration - - Weight - - Height - - Body Mass Index - - documented in this encounter Functional Status * Over the past 2 weeks, how often have you been bothered by any of the following problems? Question Answer Date of Assessment Author Patient Health Questionnaire-2 Score 2 09/29 1:12 PM EDT Shikha Snowden MA * Little interest or pleasure in doing things Answer Date of Assessment Author Several days 10/17/2024 1:12 PM EDT Asya Sonwden MA * Feeling down, depressed, or hopeless Answer Date of Assessment Author Several days 10/17/2024 1:12 PM EDAsya Patrick MA * Trouble falling or staying asleep, or sleeping too much Answer Date of Assessment Author Not at all 10/17/2024 1:12 PM Asya Cantu MA * Feeling tired or having little energy Answer Date of Assessment Author Not at all 10/17/2024 1:12 PM EDT Asya Snowden MA * Poor appetite or overeating Answer Date of Assessment Author Not at all 10/17/2024 1:12 PM EDT Asya Snowden MA * Feeling bad about yourself - or that you are a failure or have let yourself or your family down Answer Date of Assessment Author Not at all 10/17/2024 1:12 PM Asya Cantu MA * Trouble concentrating on things, such as reading the newspaper or watching television Answer Date of Assessment Author Not at all 10/17/2024 1:12 PM Asya Cantu MA * Moving or speaking so slowly that other people could have noticed? Or the opposite - being so fidgety or restless that you have been moving around a lot more than usual. Answer Date of Assessment Author Not at all 10/17/2024 1:12 PM Asya Cantu MA * Thoughts that you would be better off or hurting yourself in some way Answer Date of Assessment Author Not at all 10/17/2024 1:12 PM Asya Cantu MA * Patient Health Questionnaire-9 Score Answer Date of Assessment Author 2 10/17/2024 1:12 PM Asya Cantu MA * How difficult have these problems made it for you to do your work, take care of things at home, or get along with other people? Answer Date of Assessment Author Somewhat difficult 10/17/2024 1:12 PM Shikha Cantu MA documented as of this encounter Progress Notes * Osiel Merida MD - 10/17/2024 1:15 PM EDT Subjective Patient ID: Zaina Mtz is a 58 y.o. female who presents for No chief complaint on file.. Hypertension This is a chronic problem. The problem is controlled. Pertinent negatives include no chest pain, headaches, palpitations, peripheral edema or shortness of breath. Review of Systems Respiratory: Negative for shortness of breath. Cardiovascular: Negative for chest pain and palpitations. Neurological: Negative for headaches. Objective Physical Exam Neurological: General: No focal deficit present. Mental Status: She is oriented to person, place, and time. Psychiatric: Mood and Affect: Mood normal. Behavior: Behavior normal. Assessment/Plan Problem List Items Addressed This Visit Acquired hypothyroidism Pending blood work to be done, will follow up results and adjust treatment accordingly Primary hypertension Controlled, keep low sodium diet and exercise as tolerated, keep bp log, continue current treatment Encounter for screening mammogram for malignant neoplasm of breast - Primary Relevant Orders BI Mammogram Screening Tomosynthesis Bilateral documented in this encounter Miscellaneous Notes * Assessment & Plan Note - Osiel Merida MD - 10/17/2024 1:44 PM EDTAssociated Problem(s): Acquired hypothyroidism Pending blood work to be done, will follow up results and adjust treatment accordingly * Assessment & Plan Note - Osiel Merida MD - 10/17/2024 1:44 PM EDTAssociated Problem(s): Primary hypertension Controlled, keep low sodium diet and exercise as tolerated, keep bp log, continue current treatment documented in this encounter Plan of Treatment Scheduled Orders Name Type Priority Associated Diagnoses Orde r Schedule BI Mammogram Screening Tomosynthesis Bilateral Imaging Routine Encounter for screening mammogram for malignant neoplasm of breast Expected: 10/17/2024, Expires: 12/17/2025 documented as of this encounter Visit Diagnoses Diagnosis Encounter for screening mammogram for malignant neoplasm of breast- Primary Primary hypertension Unspecified essential hypertension Acquired hypothyroidism Unspecified hypothyroidism documented in this encounter Additional Health Concerns Assessment Noted Time PHQ-9 Depression Total Score: 2 10/18/19 25 1:12 PM EDT documented as of this encounter Care Teams Captain Of [employer] Relationship Specialty Start Date End Date Osiel Hi MD [address] [place] [id number] PCP - General Internal Medicine 01/09/19 documented as of this encounter
[2024-10-20 15:49] LABS: MANUAL DIFF FLAG NO
[2024-10-20 16:17] LABS: Hematocrit 42.0 % (37.0-47.0); Hemoglobin 13.8 g/dl (12.0-16.0); Imm Gran Abs Auto 0.02 X10*3/uL (0.00-0.03); Imm Gran Pct Auto 0.3 % (0.0-0.4); Lymphocytes Absolute Auto 2.3 X10*3/uL (1.2-4.9); Mean Corpuscular HGB Conc 32.9 g/dl (31.0-35.0); Mean Corpuscular Hemoglobin 29.4 pg (27.0-33.0); Mean Corpuscular Volume 89.6 fL (80.0-98.0); NRBC Abs Auto 0.000 X10*3/uL (0.0-0.012); NRBC Pct Auto 0.0 /100WBC (0.0-0.2); Platelet Count 287 X10*3/uL (160-400); Red Blood Count 4.69 X10*6/uL (4.20-5.50); White Blood Count 6.7 X10*3/uL (4.8-10.8)
[2024-10-20 16:37] LABS: Alanine Aminotransferase 20 U/L (0-31); Albumin Level 4.0 g/dL (3.5-5.0); Alkaline Phosphatase 127 U/L (39-117); Anion Gap 13 (12-20); Aspartate Amino Transferase 19 U/L (5-31); Blood Urea Nitrogen 6 mg/dL (9-16); Calcium 9.2 mg/dL (8.4-10.2); Carbon Dioxide 27 mmol/L (22-29); Chloride 106 mmol/L (96-108); Cholesterol 189 mg/dL (<200); Estimated Glomerular Filt Rate > 60; HDL Cholesterol 41 mg/dL (>40); Potassium 3.8 mmol/L (3.3-5.1); Sodium 142 mmol/L (135-145); Total Protein 7.3 g/dL (6.5-8.0); Triglycerides 109 mg/dL (<150)
== END 2024-10-20 15:08 | disposition home or self-care (01) ==
LOC: HO.CHCLDS 15:07
PROVIDERS: Visit Provider Internal Medicine
DX: I10 Essential (primary) hypertension (principal); E03.9 Hypothyroidism, unspecified
CPT/HCPCS: 36415; 80053; 80061; 84443; 85025